=== PATIENT | male | born 1935 | race Caucasian/White ===

== ENCOUNTER → 2016-10-04 | Outpatient (CLI) | payer OTHER ==
[~2016-10-04] MED LIST: ACET-1256 PO; ASPI81TA25 PO; ATOR-24 PO; CETI10TA84 PO; CLOP1TAB5 PO; LISI2.5T5 PO; MONT1TAB3 PO; MULT-221 PO; RANI300T PO
[2016-10-04 09:38] LABS: BASO % 0.3 %; BASO ABS # 0.02 K/uL (0-0.2); COMPLETE YES; EOS % 4.8 %; HEMATOCRIT 44.9 % (42-52); LYMPH % 35.2 %; LYMPH ABS # 2.05 K/uL (1.2-3.4); MEAN CELL VOLUME 95.1 fL (80-100); MEAN CORPUSCULAR HEMOGLOBIN 31.4 pg (25-34); MEAN PLATELET VOLUME 10.1 fL (7.4-10.4); MONO % 15.1 %; NEUT % 44.6 %; PLATELET COUNT 216 K/uL (130-400); RED BLOOD COUNT 4.72 M/uL (4.7-6.1); WHITE BLOOD COUNT 5.83 K/uL (4.8-10.8)
[2016-10-04 09:50] LABS: ALKALINE PHOSPHATASE 87 U/L (45-117); ALT/SGPT 36 U/L (12-78); AST/SGOT 22 U/L (15-37); BLOOD UREA NITROGEN 15 mg/dl (7-18); BUN/CREATININE RATIO 14.9 (10-20); CALCIUM 8.9 mg/dl (8.5-10.1); CARBON DIOXIDE 29 mmol/L (21-32); CHLORIDE 105 mmol/L (98-107); CHOLESTEROL 125 mg/dl (0-200); CHOLESTEROL/HDL RATIO 2.1; CREATININE 0.99 mg/dl (0.60-1.40); GLUCOSE 106 mg/dl (70-99); HDL CHOLESTEROL 59 mg/dl; LDL CHOLESTEROL CALCULATED 49 mg/dl; POTASSIUM 4.2 mmol/L (3.5-5.1); SODIUM 142 mmol/L (136-145); TRIGLYCERIDES 86 mg/dl (0-150); VERY LOW DENSITY LIPOPROT CALC 17 mg/dl
[2016-10-04 09:52] LABS: PROSTATE SPECIFIC ANTIGEN < 0.010 ng/ml (0.000-4.000)
== END | disposition home or self-care (01) ==
LOC: C.LAB1850 07:09
PROVIDERS: ATTEND Internal Medicine Pulmonary Disease
DX: Z00.00 Encounter for general adult medical examination without abnormal findings (principal); K21.9 Gastro-esophageal reflux disease without esophagitis; C61 Malignant neoplasm of prostate; J30.9 Allergic rhinitis, unspecified; J34.2 Deviated nasal septum; I25.10 Atherosclerotic heart disease of native coronary artery without angina pectoris

== ENCOUNTER → 2017-10-09 | Outpatient (CLI) | payer OTHER ==
[2017-10-09 15:39] LABS: BASO % 0.2 %; BASO ABS # 0.02 K/uL (0-0.2); EOS % 3.3 %; EOS ABS # 0.27 K/uL (0-0.5); HEMATOCRIT 42.2 % (42-52); HEMOGLOBIN 13.8 g/dL (14.0-18.0); IG# 0.02 K/uL (0.00-0.02); LYMPH % 31.7 %; MEAN CELL VOLUME 95.5 fL (80-100); MEAN CORPUSCULAR HEMOGLOBIN 31.2 pg (25-34); MEAN CORPUSCULAR HGB CONC 32.7 g/dl (32-36); MEAN PLATELET VOLUME 9.9 fL (7.4-10.4); MONO % 13.3 %; MONO ABS # 1.09 K/uL (0.11-0.59); NEUT % 51.3 %; NEUT ABS # 4.19 K/uL (1.4-6.5); PLATELET COUNT 211 K/uL (130-400); RED CELL DISTRIBUTION WIDTH SD 45.3 fL (36.4-46.3); WHITE BLOOD COUNT 8.19 K/uL (4.8-10.8)
[2017-10-09 15:45] LABS: ALBUMIN 3.4 gm/dl (3.4-5.0); ALT/SGPT 37 U/L (12-78); AST/SGOT 23 U/L (15-37); BLOOD UREA NITROGEN 15 mg/dl (7-18); CALCIUM 8.6 mg/dl (8.5-10.1); CARBON DIOXIDE 30 mmol/L (21-32); CREATININE 0.97 mg/dl (0.60-1.40); GLUCOSE 83 mg/dl (70-99); SODIUM 140 mmol/L (136-145)
[2017-10-09 15:50] LABS: ALKALINE PHOSPHATASE 84 U/L (45-117); CHOLESTEROL 103 mg/dl (0-200); LDL CHOLESTEROL CALCULATED 27 mg/dl; TOTAL PROTEIN 6.8 gm/dl (6.4-8.2)
== END | disposition home or self-care (01) ==
LOC: C.LAB1850 14:18
PROVIDERS: ATTEND Internal Medicine Pulmonary Disease
DX: Z00.00 Encounter for general adult medical examination without abnormal findings (principal); K21.9 Gastro-esophageal reflux disease without esophagitis; C61 Malignant neoplasm of prostate; J30.9 Allergic rhinitis, unspecified; I25.10 Atherosclerotic heart disease of native coronary artery without angina pectoris; E78.5 Hyperlipidemia, unspecified; I42.9 Cardiomyopathy, unspecified